=== PATIENT | female | born 1970 | race Caucasian/White ===

== ENCOUNTER 2016-10-11 09:29 | Outpatient (CLI) ==
[2015-05-27 16:08] VITALS: BMI 26.2
--- NOTE | 2016-10-11 10:21 | DI ---
EXAM: Three views of the left foot HISTORY: Left foot pain. COMPARISON: Left foot x-ray 12/31/2014 FINDINGS: There is no cortical irregularity or displaced fracture of the left foot. The joint space s are unremarkable. There is no lytic or blastic lesion. The arch is maintained. The soft tissues are unremarkable. There is a plantar are spur. IMPRESSION: No acute osseous abnormality or displaced fracture of the left foot.
== END 2016-10-11 09:30 | disposition home or self-care (01) ==
LOC: RAD 09:29
PROVIDERS: ATTEND Family Medicine
DX: M79.672 Pain in left foot (principal)